=== PATIENT | male | born 1980 | race Caucasian/White ===

== ENCOUNTER 2020-05-22 11:29 | Emergency (ER) | payer OTHER ==
--- NOTE | 2020-05-22 12:42 | EDM.PDOC ---
ED HPI GENERAL MEDICAL PROBLEM - General Chief Complaint: Skin Complaint Stated Complaint: SENT BY CLINIC LEG RED,SWOLLEN LOW OXYGEN LEVEL Time Seen by Provider: 05/22/20 12:41 Source of Information: Reports: Patient History Limitations: Reports: No Limitations - History of Present Illness INITIAL COMMENTS - FREE TEXT/NARRATIVE: 39-year-old male presents to the ED due to severe pruritic rash both lower extremities for the better part of a month. He does golf and he has perhaps been exposed to poison ed but he cannot report that he ever developed any blisters or vesicles on his lower extremities. The lesions are extremely pruritic and he has been scratching them excessively with multiple excoriations bilaterally. Over the last week or 10 days he has developed diffuse erythema of both lower extremities and marked swelling of his lower extremities below the knee. He having he is having no trouble walking particularly going up stairs with no calf tenderness. He also appreciates a maculopapular rash on the dorsal aspect of his left foot but not on his right foot. This appears to be secondary to an allergic response to the tongue of 1 of his shoes or boots. He denies being in a hot tub or swimming pool that would be a poor coordination. He is not showing any signs of systemic infection such as fever chills nausea or vomiting. Onset: Gradual Onset Date: 04/20/20 Duration: Week(s):, Chronic, Constant, Getting Worse Location: Reports: Lower Extremity, Left, Lower Extremity, Right Quality: Reports: Other Severity: Severe Improves with: Reports: None Worsens with: Reports: None Context: Denies: Activity, Exercise, Lifting, Sick Contact, Trauma, Other Associated Symptoms: Reports: No Other Symptoms, Rash (History of present illness.). Denies: Confusion, Chest Pain, Cough, cough w sputum, Diaphoresis, Fever/Chills, Headaches, Loss of Appetite, Malaise, Nausea/Vomiting, Seizure, Shortness of Breath, Syncope, Weakness Treatments [employer]PER[employer]OR: Reports: Other (see below) (1.) - Related Data Allergies Allergy/AdvReac Type Severity Reaction Status Date / Time No Known Allergies Allergy Verified 05/22/20 11:51 Home Meds: Home Meds Betamethasone Dipropionate 45 gm TP BEDTIME #1 tube 05/22/20 [Rx] Doxycycline [Vibra-Tabs] 100 mg PO Q12HR #42 tab 05/22/20 [Rx] Furosemide [Lasix] 40 mg PO DAILY #14 tab 05/22/20 [Rx] Past Medical History - Past Health History Medical/Surgical History: Denies Medical/Surgical History Social & Family History - Tobacco Use Smoking Status *Q: Never Smoker - Caffeine Use Caffeine Use: Reports: Soda - Recreational Drug Use Recreational Drug Use: No - Living Situation & Occupation Living situation: Reports: Single Occupation: Employed ED ROS GENERAL - Review of Systems Review Of Systems: See Below Constitutional: Denies: Fever, Chills, Malaise, Weakness, Decreased Appetite, Weight Loss HEENT: Reports: No Symptoms Respiratory: Reports: No Symptoms Cardiovascular: Reports: No Symptoms Endocrine: Reports: No Symptoms GI/Abdominal: Reports: No Symptoms : Reports: Hematuria Musculoskeletal: Reports: No Symptoms Skin: Reports: Rash (To have developed a contact dermatitis primarily on the dorsal aspect of his left foot with foot with a significant maculopapular rash almost vesicular in appearance i.e. a contact dermatitis likely to a tongue of 1 of his shoes that he is wearing. This appears to have set off a contact dermatitis in both lower extremities with secondary excoriations and development of secondary infection with marked redness increased warmth of both lower extremities from the foot dorsally up to the knee anterior aspect of both legs. The posterior aspects of the legs are not involved. He does have a few pustules on his upper anterior chest as well.) Neurological: Reports: No Symptoms. Denies: Confusion, Dizziness, Headache, Numbness, Seizure, Syncope, Tingling, Tremors, Trouble Speaking Psychiatric: Reports: No Symptoms Hematologic/Lymphatic: Reports: No Symptoms Immunologic: Reports: No Symptoms ED EXAM, SKIN/RASH Exam: See Below Exam Limited By: No Limitations General Appearance: Alert, WD/WN, No Apparent Distress, Other (Temperature is 36.7. Heart rate is 80 in sinus respiratory is 20 with sats of 93%) Eye Exam: Bilateral Eye: Normal Inspection, PERRL Throat/Mouth: Normal Inspection, Normal Lips, Normal Oropharynx Head: Atraumatic, Normocephalic Neck: Normal Inspection, Supple, Non-Tender, Full Range of Motion. No: Lymphadenopathy (L), Lymphadenopathy (R) Respiratory/Chest: No Respiratory Distress, Lungs Clear, Normal Breath Sounds, No Accessory Muscle Use, Chest Non-Tender, Other (Note initial O2 sats are posted at 93% on room air.) Cardiovascular: Regular Rate, Rhythm, No Edema, No Gallop (He is showing no sign s of respiratory distress.), No Murmur, No Rub. No: Normal Peripheral Pulses Peripheral Pulses: 2+: Posterior Tibial (L), Posterior Tibial (R), Dorsalis Pedis (L), Dorsalis Pedis (R), 3+: Carotid (L), Carotid (R) GI/Abdominal: Normal Bowel Sounds, Soft, Non-Tender, No Organomegaly, No Mass, Pelvis Stable, Other (Markedly obese. No surgical scars) Back Exam: Normal Inspection, Full Range of Motion. No: CVA Tenderness (L), CVA Tenderness (R) Extremities: Normal Inspection, Normal Range of Motion, Non-Tender, Pedal Edema (Moderate edema 2+ in both lower extremities up to the knee.), Other (Both lower extremities are taut with fluid and swelling secondary to developing cellulitis both lower extremities. Negative Chisholm sign and he has no pain in his calves with full dorsiflexion and he can walk upstairs with no pain in his calves.) Neurological: Alert, Oriented, CN II-XII Intact, Normal Cognition Psychiatric: Normal Affect, Normal Mood Skin: Warm, Dry, No Rash (Is numerous sick open excoriations on the anterior anterior aspect of both lower extremities that have become secondarily infected from scratching. There is a maculopapular almost vesicular rash on the dorsal aspect of his left foot which appears to be secondary to a contact dermatitis likely from 1 of the tongues in 1 of his shoes. Likely from a leather source likely tendons.), Erythema (Currently the rash on the lower extremities is erythematous red hot and), Increased Warmth ( swollen mildly tender.) Location, Skin: Lower Extremity, Right (The dorsal foot to the knee from the dorsal foot to the knee), Lower Extremity, Left Characteristics: Other (Multiple excoriations with open wounds a few of them oozing on the anterior aspect of his left leg.) Associated features: Warmth, Tenderness, Swelling, Scaling, Inflammation Course - Vital Signs Last Recorded V/S: Last Vital Signs Temp 36.7 C 05/22/20 11:55 Pulse 79 05/22/20 13:55 Resp 19 05/22/20 13:55 BP 142/77 H 05/22/20 13:55 Pulse Ox 96 05/22/20 13:55 - Radiology Interpretation Free Text/Narrative:: 39-year-old male presents to the ED with a rash on both lower extremities for the better part of a month. He asked he explains that they are extremely pruritic and he has been scratching them excessively likely in the night when he sleeping. The excoriations have become secondarily infected and he is now developing a cellulitis of both anterior aspects of his legs. He has a macular papular almost vesicular rash on the dorsal aspect of his left foot that strongly suggest a contact dermatitis. This may well of been the etiology of the rash in both lower extremities to begin with. Patient advised to look at different shoewear that may or may not be the culprit. It is likely from the tongue of a leather boot. Treatment at this time is going to be Lasix 40 mg once daily every morning for the next 12 days to help reduce the amount of edema in both lower extremities. He will use topical bacitracin ointment on the legs every night at bedtime. He will use Betnovate 0.01% cream to the anterior aspect of both legs and dorsal left foot until the rash goes away. He will be placed on doxycycline 100 mg twice daily for the next 3 weeks in an effort to clear up the cellulitis in the skin. Departure - Departure Time of Disposition: 13:31 Disposition: Home, Self-Care 01 Condition: Fair Clinical Impression: Cellulitis of left anterior lower leg, Cellulitis of right lower extremity Contact dermatitis and eczema due to oils and greases Qualifiers: Contact dermatitis type: irritant Qualified Code(s): L24.1 - Irritant contact dermatitis due to oils and greases - Discharge Information *PRESCRIPTION DRUG MONITORING PROGRAM REVIEWED*: Not Applicable *COPY OF PRESCRIPTION DRUG MONITORING REPORT IN PATIENT SHAHBAZ: Not Applicable Prescriptions: Betamethasone Dipropionate 45 gm TP BEDTIME #1 tube Furosemide [Lasix] 40 mg PO DAILY #14 tab Doxycycline [Vibra-Tabs] 100 mg PO Q12HR #42 tab Instructions: Cellulitis, Adult, [id number], Contact Dermatitis, [id number] Referrals: PCP,None [Primary Care Provider] - Forms: ED Department Discharge Additional Instructions: Evaluation in the emergency room this morning in regards to a severe rash both lower extremities from the ankles to the knees which is very red inflamed and obviously infected. We call this infection cellulitis which means infection under the skin. The nidus for the infection is open sores on the legs secondary to scratching. You have developed a contact dermatitis or irritant dermatitis to some chemical that is in your workplace or in your boot that is caused the initial skin inflammation and irritation and secondary severe itching. Scratching has opened up the skin and allowed secondary infection to occur. Treatment is to be Lasix 40 mg once daily every morning which is a diuretic to help you get rid of some of the extra fluid in your legs which is squishing the small vessels that are supplying the skin on the surface with blood supply. This will make it very difficult for the skin to heal. Use this tablet once every morning for the next 2 weeks. Secondly you will need a steroid cream called betamethasone to be applied to the skin of both legs at bedtime and first thing in the morning until the rash clears which will likely be close to 2 weeks. This should alleviate a good deal of the itching and hopefully stop the itch scratch cycle. He will also need antibiotic doxycycline 100 mg twice daily for the next 3 weeks to help clear up the cellulitis or infection under the skin as well. Need to really look at your shoe wear and/or boots as they appear to be a likely source of an allergy particular to the dorsal aspect of your left foot coming from the tongue avoid of your boots or shoes that you wear. Suggest purchasing alternative shoes and wearing cotton socks which you changed twice daily so that they do not stay moist and cause the skin irritant to soak through the wet sock into your skin. Follow-up with personal care physician in 3 weeks time if not markedly improved. Sepsis Event Note (ED) - Evaluation Sepsis Screening Result: No Definite Risk - Focused Exam Vital Signs: Vital Signs Temp Pulse Resp BP Pulse Ox 05/22/20 13:55 79 19 142/77 H 96 05/22/20 13:00 80 20 136/86 93 L 05/22/20 11:55 36.7 C 80 20 165/82 H 93 L
== END 2020-05-22 13:55 | disposition home or self-care (01) ==
LOC: JD.ED 11:29
DX: L24.1 Irritant contact dermatitis due to oils and greases (principal); L03.116 Cellulitis of left lower limb; L03.115 Cellulitis of right lower limb
CPT/HCPCS: 99283

== ENCOUNTER 2022-09-18 16:06 | Emergency (ER) | payer OTHER ==
[2022-09-18] MEDS ORDERED: Metoclopramide 10 MG/2 ML SDV IVPUSH ONE (16:17)
[2022-09-18] MEDS ORDERED: Diphtheria,Pertussis(Acell),Tetanus Vaccine 0.5 ML Syringe IM ONE (16:23)
[2022-09-18] MEDS ORDERED: Dextrose 5%-Lactated Ringers 1,000 ML IV SCH (16:30)
[2022-09-18 17:10] LABS: ESTIMATED GFR 86 mL/min (>60)
== END 2022-09-18 19:14 | disposition home or self-care (01) ==
LOC: JD.ED 16:06
DX: S01.01XA Laceration without foreign body of scalp, initial encounter (principal); F10.920 Alcohol use, unspecified with intoxication, uncomplicated; E66.9 Obesity, unspecified; Z68.30 Body mass index [BMI] 30.0-30.9, adult; Z88.1 Allergy status to other antibiotic agents; Y90.1 Blood alcohol level of 20-39 mg/100 ml; Z23 Encounter for immunization; W18.30XA Fall on same level, unspecified, initial encounter
CPT/HCPCS: 12001; 36415; 70450; 72125; 80053; 80307; 83735; 85025; 85610; 85730; 90471; 90715; 96365; 96366; 99283; J2765; J7121